=== PATIENT | male | born 1995 | race Two or more races ===

== ENCOUNTER 2020-11-20 18:53 | Emergency (ER) | payer OTHER ==
[~2020-11-20] VITALS: Ht 180.3 cm; Wt 97.5 kg
== END 2020-11-20 20:35 | disposition home or self-care (01) ==
LOC: ER 18:53
DX: S61.421A Laceration with foreign body of right hand, initial encounter (principal); W26.0XXA Contact with knife, initial encounter; Y93.89 Activity, other specified; Y92.098 Other place in other non-institutional residence as the place of occurrence of the external cause; Y99.8 Other external cause status

== ENCOUNTER 2020-12-03 17:44 | Emergency (ER) | payer OTHER ==
[~2020-12-03] VITALS: Ht 180.3 cm; Wt 97.5 kg
== END 2020-12-03 19:55 | disposition home or self-care (01) ==
LOC: ER 17:44
DX: Z48.02 Encounter for removal of sutures (principal)